=== PATIENT | female | born 1975 | race Two or more races ===

== ENCOUNTER 2020-03-31 07:24 | Emergency (ER) | payer OTHER ==
[~2020-03-31] VITALS: Ht 167.6 cm; Wt 122.5 kg
[2020-03-31] MEDS ORDERED: INTESTINEX680 M1 PO (13:26)
[2020-03-31] MEDS ORDERED: LEVSIN/SL0.125 MG PO (13:26)
[2020-03-31] MEDS ORDERED: PEPCID AC20 MG PO (13:26)
== END 2020-03-31 13:45 | disposition home or self-care (01) ==
LOC: ER 07:24
DX: K30 Functional dyspepsia (principal); R10.84 Generalized abdominal pain

== ENCOUNTER 2023-02-27 02:21 | Emergency (ER) | payer OTHER ==
[~2023-02-27] VITALS: Ht 170.2 cm; Wt 127.0 kg
[~2023-02-27 02:21] MED LIST: INTESTINEX680 M1 PO; LEVSIN/SL0.125 MG PO; PEPCID AC20 MG PO
[2023-02-27] MEDS ORDERED: BISOPROLOL FUMAR5 MG (02:30)
[2023-02-27] MEDS ORDERED: ROSUVASTATIN CA20 MG (02:30)
[2023-02-27] MEDS ORDERED: KETO10TA2 PO (05:50)
[2023-02-27] MEDS ORDERED: NORFLEX100MG PO (05:50)
== END 2023-02-27 05:56 | disposition home or self-care (01) ==
LOC: ER 02:22
DX: M54.50 Low back pain, unspecified (principal)